=== PATIENT | female | born 2000 | race American Indian/Alaskan Native ===

== ENCOUNTER 2020-02-25 19:46 | Emergency (ER) | payer MEDICAID, OTHER ==
[2020-02-25] MEDS ORDERED: Ondansetron 4 MG Tab.DIS PO ONE (19:47)
[2020-02-25 20:59] LABS: CORONAVIRUS COVID-19 NAA NEGATIVE (NEGATIVE)
[2020-02-25 21:31] LABS: ANION GAP 14.8 mEq/L (7-13); CHLORIDE,CL 101 mmol/L (98-107); SODIUM,NA 139 mmol/L (136-145)
[2020-02-25] MEDS ORDERED: Ondansetron 4 MG/2 ML SDV IVPUSH ONE (22:03)
[2020-02-25] MEDS ORDERED: Sodium Chloride 0.9% 1,000 ML IV ONE (22:04)
[2020-02-25] MEDS ORDERED: Iopamidol 612 MG/ML 100 ML Bottle IVPUSH ONE (22:05)
--- NOTE | 2020-02-25 23:08 | CT ---
PROCEDURE INFORMATION: Exam: CT Abdomen And Pelvis With Contrast Exam date and time: 02/25/2020 10:47 PM Age: 20 years old Clinical indication: Other: Low pain; Additional info: Nausea vomiting rlq pain TECHNIQUE: Imaging protocol: Computed tomography of the abdomen and pelvis with intravenous contrast. Radiation optimization: All CT scans at this facility use at least one of these dose optimization techniques: automated exposure control; mA and/or kV adjustment per patient size (includes targeted exams where dose is matched to clinical indication); or iterative reconstruction. Contrast material: [id number]; Contrast volume: 75 ml; Contrast route: INTRAVENOUS (IV); COMPARISON: CT ABDOMEN/PELVIS 07/18/2011 8:41 PM FINDINGS: Lungs: The visualized lung bases are clear. Liver: The liver is normal. Gallbladder and bile ducts: The gallbladder is normal. There is no evidence of biliary ductal dilation. Pancreas: The pancreas is normal. Spleen: The spleen is normal. Adrenal glands: The adrenal glands are normal. Kidneys and ureters: The kidneys are normal. No hydronephrosis. No visible calculi. Stomach and bowel: Non-specific/nonobstructive intestinal gas pattern. No specific small bowel or colonic abnormality is identified. The upper GI tract is normal. Appendix: A normal appendix is identified. Intraperitoneal space: No free air. There is a very small amount of free fluid in the pelvis. This may be physiologic. Vasculature: There is no aortic aneurysm. Lymph nodes: No pelvic adenopathy. There is no adenopathy. Urinary bladder: Bladder is normal. Reproductive: The uterus is normal. No adnexal mass. Bones/joints: No acute bony findings are identified. Soft tissues: There is no soft tissue abnormality seen. IMPRESSION: No acute findings.
[2020-02-25] MEDS ORDERED: Ondansetron 4 MG Tab.DIS ONE (23:16)
--- NOTE | 2020-02-25 23:18 | EDM.PDOC ---
ED HPI GENERAL MEDICAL PROBLEM - General Chief Complaint: Gastrointestinal Problem Stated Complaint: THROWING UP, CHILLS, VOMITING, STUFFY NOSE, ACHES Time Seen by Provider: 02/25/20 21:00 Source of Information: Reports: Patient, RN History Limitations: Reports: No Limitations - History of Present Illness INITIAL COMMENTS - FREE TEXT/NARRATIVE: ED with report of nausea vomiting. lower abdominal pain for past 3-4 hours, mainly RLQ. LMP current. No known exposure to COVID. No diarrhea. Emesis x 3 while at work . No cough. No urinary sx. no other family members with similar s x. 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 [No Known Home Meds] 02/25/20 [History] Past Medical History Respiratory History: Reports: Asthma Hematologic History: Reports: Iron Deficiency Social & Family History - Family History Family Medical History: No Pertinent Family History - Tobacco Use Tobacco Use Status *Q: Never Tobacco User Second Hand Smoke Exposure: No - Caffeine Use Caffeine Use: Reports: Soda - Recreational Drug Use Recreational Drug Use: Yes Drug Use in Last 12 Months: Yes Recreational Drug Type: Reports: Marijuana/Hashish Recreational Drug Use Frequency: Daily ED ROS GENERAL - Review of Systems Review Of Systems: Comprehensive ROS is negative, except as noted in HPI. ED EXAM, GI/ABD - Physical Exam Exam: See Below Exam Limited By: No Limitations General Appearance: Alert, Mild Distress Eyes: Bilateral: EOMI Ears: Normal External Exam Nose: Normal Inspection Throat/Mouth: Normal Inspection Head: Atraumatic, Normocephalic Neck: Normal Inspection Respiratory/Chest: No Respiratory Distress, Lungs Clear, Normal Breath Sounds Cardiovascular: Normal Peripheral Pulses, Regular Rate, Rhythm GI/Abdominal Exam: Normal Bowel Sounds, Soft, Tender (RLQ). No: Distended, Guarding Back Exam: Normal Inspection Extremities: Normal Inspection Neurological: Alert, Oriented, Normal Cognition Psychiatric: Normal Affect, Normal Mood Skin Exam: Warm, Dry, Intact, Normal Color Course - Vital Signs Last Recorded V/S: Last Vital Signs Temp 97.6 F 02/25/20 23:20 Pulse 64 02/25/20 23:20 Resp 18 02/25/20 23:20 BP 116/76 02/25/20 23:20 Pulse Ox 100 02/25/20 23:20 - Orders/Labs/Meds Labs: Laboratory Tests 02/25/20 02/25/20 02/25/20 Range/Units 20:10 21:07 21:07 WBC 6.8 (5.0-10.0) 10^3/uL RBC 4.33 (4.2-5.4) 10^6/uL Hgb 9.4 L (12.0-16.0) g/dL Hct 30.9 L (37.0-47.0) % MCV 71.4 L (80-100) fL MCH 21.7 L (27.0-34.0) pg MCHC 30.4 L (33.0-35.0) g/dL Plt Count 308 (150-450) 10^3/uL Neut % (Auto) 74.3 (42.2-75.2) % Lymph % (Auto) 20.3 L (20.5-50.1) % [place] % (Auto) 4.4 (2-8) % Eos % (Auto) 0.4 L (1.0-3.0) % Baso % (Auto) 0.6 (0.0-1.0) % Sodium 139 (136-145) mmol/L Potassium 3.8 (3.5-5.1) mmol/L Chloride 101 (98-107) mmol/L Carbon Dioxide 27 (21-32) mmol/L Anion Gap 14.8 H (7-13) mEq/L BUN 13 (7-18) mg/dL Creatinine 0.75 (0.55-1.02) mg/dL Est Cr Clr Drug Dosing 125.04 mL/min Estimated GFR (MDRD) > 60 BUN/Creatinine Ratio 17.3 (No establ ref range) Glucose 95 (74-99) mg/dL Lactic Acid (0.4-2.0) mmol/L Calcium 9.0 (8.5-10.1) mg/dL Total Bilirubin 0.3 (0.2-1.0) mg/dL AST 12 L (15-37) U/L ALT 18 (14-59) U/L Alkaline Phosphatase 60 (46-116) U/L C-Reactive Protein 0.2 (0.0-0.9) mg/dL Total Protein 8.1 (6.4-8.2) g/dL Albumin 4.5 (3.4-5.0) g/dL Globulin 3.6 Albumin/Globulin Ratio 1.2 HCG, Qual Urine Color (YELLOW) Urine Appearance (CLEAR) Urine pH (5.0-9.0) Ur Specific [place] (1.005-1.030) Urine Protein (NEGATIVE) Urine Glucose (UA) (NEGATIVE) Urine Ketones (NEGATIVE) Urine Occult Blood (NEGATIVE) Urine Nitrite (NEGATIVE) Urine Bilirubin (NEGATIVE) Urine Urobilinogen (0.2-1.0) mg/dL Ur Leukocyte Esterase (NEGATIVE) Urine RBC /HPF Urine WBC (0-5/HPF) /HPF Ur Epithelial Cells (NOT SEEN) /HPF Amorphous Sediment (NOT SEEN) /HPF Urine Bacteria (0-FEW/HPF) /HPF Urine Mucus (NOT SEEN) /LPF Influenza Type A RNA Negative (NEGATIVE) Influenza Type B RNA Negative (NEGATIVE) SARS-CoV-2 RNA (UCHE) Negative (NEGATIVE) 02/25/20 02/25/20 02/25/20 Range/Units 21:07 21:07 21:20 WBC (5.0-10.0) 10^3/uL RBC (4.2-5.4) 10^6/uL Hgb (12.0-16.0) g/dL Hct (37.0-47.0) % MCV (80-100) fL MCH (27.0-34.0) pg MCHC (33.0-35.0) g/dL Plt Count (150-450) 10^3/uL Neut % (Auto) (42.2-75.2) % Lymph % (Auto) (20.5-50.1) % Canadian % (Auto) (2-8) % Eos % (Auto) (1.0-3.0) % Baso % (Auto) (0.0-1.0) % Sodium (136-145) mmol/L Potassium (3.5-5.1) mmol/L Chloride (98-107) mmol/L Carbon Dioxide (21-32) mmol/L Anion Gap (7-13) mEq/L BUN (7-18) mg/dL Creatinine (0.55-1.02) mg/dL Est Cr Clr Drug Dosing mL/min Estimated GFR (MDRD) BUN/Creatinine Ratio (No establ ref range) Glucose (74-99) mg/dL Lactic Acid 0.6 (0.4-2.0) mmol/L Calcium (8.5-10.1) mg/dL Total Bilirubin (0.2-1.0) mg/dL AST (15-37) U/L ALT (14-59) U/L Alkaline Phosphatase (46-116) U/L C-Reactive Protein (0.0-0.9) mg/dL Total Protein (6.4-8.2) g/dL Albumin (3.4-5.0) g/dL Globulin Albumin/Globulin Ratio HCG, Qual Negative Urine Color Yellow (YELLOW) Urine Appearance Clear (CLEAR) Urine pH 6.0 (5.0-9.0) Ur Specific [place] >= 1.030 (1.005-1.030) Urine Protein 30 H (NEGATIVE) Urine Glucose (UA) Negative (NEGATIVE) Urine Ketones 15 H (NEGATIVE) Urine Occult Blood Large H (NEGATIVE) Urine Nitrite Negative (NEGATIVE) Urine Bilirubin Negative (NEGATIVE) Urine Urobilinogen 0.2 (0.2-1.0) mg/dL Ur Leukocyte Esterase Negative (NEGATIVE) Urine RBC 0-5 /HPF Urine WBC 0-5 (0-5/HPF) /HPF Ur Epithelial Cells Few (NOT SEEN) /HPF Amorphous Sediment Few (NOT SEEN) /HPF Urine Bacteria Few (0-FEW/HPF) /HPF Urine Mucus Few H (NOT SEEN) /LPF Influenza Type A RNA (NEGATIVE) Influenza Type B RNA (NEGATIVE) SARS-CoV-2 RNA (UCHE) (NEGATIVE) Meds: Medications Discontinued Medications Generic Name Dose Route Start Last Admin Trade Name Freq PRN Reason Stop Dose Admin Sodium Chloride 1,000 mls @ 999 mls/hr 02/25/20 22:04 02/25/20 22:20 Normal Saline IV 02/25/20 23:04 999 mls/hr .BOLUS ONE Administration Iopamidol 100 ml 02/25/20 22:05 02/25/20 22:34 Isovue-300 (61%) IVPUSH 02/25/20 22:06 100 ml ONETIME ONE Administration Ondansetron HCl 4 mg 02/25/20 22:03 02/25/20 22:18 Zofran IVPUSH 02/25/20 22:04 4 mg ONETIME ONE Administration Ondansetron HCl Confirm 02/25/20 23:16 02/25/20 23:27 Zofran Odt Administered 02/25/20 23:17 Not Given Dose 12 mg .ROUTE .STK-MED ONE Departure - Departure Time of Disposition: 23:15 Disposition: Home, Self-Care 01 Condition: Good Clinical Impression: Gastroenteritis - Discharge Information *PRESCRIPTION DRUG MONITORING PROGRAM REVIEWED*: No *COPY OF PRESCRIPTION DRUG MONITORING REPORT IN PATIENT WALKER: No Instructions: Viral Gastroenteritis, Adult, [id number], Nausea and Vomiting, Adult, [id number] Forms: ED Department Discharge Additional Instructions: zofran 4mg ODT one every 4 hours as needed for nausea/ vomiting increase fluids when nausea controlled light diet advance slowly follow up if symptoms worsen increase fruit and fiber in diet Sepsis Event Note (ED) - Evaluation Sepsis Screening Result: No Definite Risk - Focused Exam Vital Signs: Vital Signs Temp Pulse Resp BP Pulse Ox 02/25/20 23:20 97.6 F 64 18 116/76 100 02/25/20 20:05 98.1 F 68 18 131/73 100
== END 2020-02-25 23:25 | disposition home or self-care (01) ==
LOC: DL.ED 19:46
DX: K52.9 Noninfective gastroenteritis and colitis, unspecified (principal); J45.909 Unspecified asthma, uncomplicated; Z20.822 Contact with and (suspected) exposure to COVID-19
CPT/HCPCS: 0240U; 36415; 74177; 80053; 81001; 83605; 84703; 85025; 86140; 96374; 99284; A9270; J2405; J7030; Q9967; 99283

== ENCOUNTER 2020-04-06 13:32 | Emergency (ER) | payer OTHER ==
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
[2020-04-06 14:47] LABS: ANION GAP 13.9 mEq/L (7-13); CHLORIDE,CL 101 mmol/L (98-107); SODIUM,NA 139 mmol/L (136-145)
[2020-04-06 14:50] LABS: ACETAMINOPHEN 0 ug/mL (10-30 (Therapeutic))
== END 2020-04-06 16:01 | disposition home or self-care (01) ==
LOC: DL.ED 13:32
DX: R45.851 Suicidal ideations (principal); J45.909 Unspecified asthma, uncomplicated
CPT/HCPCS: 36415; 80053; 80143; 80179; 80305-QW; 80307; 81001; 81025; 85025; 87086; 99283; 99284

== ENCOUNTER 2020-12-17 12:38 | Emergency (ER) | payer OTHER ==
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
[2020-12-17 14:06] LABS: CHLORIDE,CL 107 mmol/L (98-107); SODIUM,NA 144 mmol/L (136-145)
== END 2020-12-17 14:42 | disposition home or self-care (01) ==
LOC: DL.ED 12:38
DX: R10.11 Right upper quadrant pain (principal)
CPT/HCPCS: 36415; 80053; 83690; 85025; 99284